=== PATIENT | female | born 1985 | race Caucasian/White ===

== ENCOUNTER 2017-08-10 13:21 | Emergency (ER) | payer OTHER ==
[~2017-08-10] VITALS: Ht 172.7 cm; Wt 131.5 kg
[~2017-08-10 13:21] MED LIST: ANAPROX DS550 MG PO; CEPHALEXIN 500500 M3 PO; CHANTIX0.5 MG PO; CIPRO500 MG PO; DEXADRINE; FLAGYL500 MG PO; ROBAXIN500 MG PO
[2017-08-10] MEDS ORDERED: ERYTHROMYCIN E3.5 G2 OPHTHALMIC (14:09)
[2017-08-10 14:16] VITALS: BP 120/83
== END 2017-08-10 14:18 | disposition home or self-care (01) ==
LOC: M.ERS 13:21
DX: H10.31 Unspecified acute conjunctivitis, right eye (principal); R23.8 Other skin changes; F17.200 Nicotine dependence, unspecified, uncomplicated

== ENCOUNTER 2017-10-23 01:59 | Emergency (ER) | payer BC ==
[~2017-10-23] VITALS: Ht 175.3 cm; Wt 131.5 kg
[~2017-10-23 01:59] MED LIST changes: +ERYTHROMYCIN E3.5 G2 OPHTHALMIC
[2017-10-23 03:09] LABS: URINE BILIRUBIN NEGATIVE (Negative); URINE BLOOD 1+ (Negative); URINE CLARITY CLEAR; URINE COLOR YELLOW; URINE GLUCOSE-RANDOM NEGATIVE (Negative); URINE KETONES NEGATIVE (Negative); URINE LEUKOCYTES-REFLEX 1+ (Negative); URINE NITRITE-REFLEX NEGATIVE (Negative); URINE PROTEIN NEGATIVE (Negative); URINE SPECIFIC GRAVITY >= 1.030 (1.005-1.030); URINE UROBILINOGEN 0.2 E.U./dl (0.2-1.0)
[2017-10-23 03:16] LABS: AMP/METHAMP POSITIVE (Negative); BARBITURATES Negative (Negative); BENZODIAZEPINES Negative (Negative); COCAINE Negative (Negative); METHADONE Negative (Negative); OPIATES Negative (Negative); PCP Negative (Negative); THC Negative (Negative)
[2017-10-23] MEDS ORDERED: HYDROCODONE-AP1 EAC6 PO (03:28)
[2017-10-23] MEDS ORDERED: CYCLOBENZAPRINE5 MG PO (03:28)
[2017-10-23] MEDS ORDERED: TORADOL 10 MG T10 MG PO (03:28)
[2017-10-23 03:34] VITALS: BP 172/104
[2017-10-23 03:46] LABS: CASTS None Seen /LPF (None Seen); MUCUS 0-3 Light strn/LPF (None Seen); SQUAMOUS >10 Many /LPF (0-3); URINE WBC-REFLEX 6-15 Few /HPF (0-5)
[2017-10-23 03:47] LABS: BACTERIA-REFLEX 1-9 Few /HPF (None Seen); CALCIUM OXALATE 0-3 Few /LPF (None Seen); URINE RBC 3-10 Few /HPF (0-2)
== END 2017-10-23 03:35 | disposition home or self-care (01) ==
LOC: M.ERS 01:59
PROVIDERS: Personal Emergency Response Attendant
DX: M54.5 Low back pain (principal)

== ENCOUNTER 2018-02-07 17:11 | Emergency (ER) | payer BC ==
[~2018-02-07] VITALS: Ht 172.7 cm; Wt 124.7 kg
[~2018-02-07 17:11] MED LIST changes: +CYCLOBENZAPRINE5 MG PO; +HYDROCODONE-AP1 EAC6 PO; +TORADOL 10 MG T10 MG PO
[2018-02-07] MEDS ORDERED: IBUPROFEN 800800 M1 PO (17:43)
[2018-02-07] MEDS ORDERED: ROBAXIN500 MG PO (17:43)
[2018-02-07 18:00] VITALS: BP 153/93
== END 2018-02-07 18:00 | disposition home or self-care (01) ==
LOC: M.ERS 17:11
DX: S39.012A Strain of muscle, fascia and tendon of lower back, initial encounter (principal); X58.XXXA Exposure to other specified factors, initial encounter; Y93.89 Activity, other specified; Y92.89 Other specified places as the place of occurrence of the external cause; Y99.8 Other external cause status